=== PATIENT | female | born 1985 | race Two or more races ===

== ENCOUNTER 2021-12-19 13:27 | Inpatient (IN) | payer OTHER ==
[~2021-12-19] VITALS: Ht 165.1 cm; Wt 59.9 kg
[2021-12-19] MEDS ORDERED: ONDANSETRON HCL 4MG/2ML INJ IV STA (13:54)
[2021-12-19] MEDS ORDERED: MORPHINE SULFATE 4 MG/ML CPJ (NOT FOR IM USE) IV STA (13:54)
[2021-12-19] MEDS ORDERED: FAMOTIDINE 20MG/2ML VIAL IV STA (13:54)
[2021-12-19] MEDS ORDERED: SODIUM CHLORIDE 0.9% 1,000 ML IV ONE (14:00)
[2021-12-19] MEDS ORDERED: HALOPERIDOL LACTATE 5MG/ML VIAL IM ONE (14:30)
[2021-12-19 15:03] LABS: BASOPHILS % 0.5 % (0.0-2.0); EOSINOPHILS % 0.5 % (0.0-5.0); HEMATOCRIT. 36.1 % (36.0-48.0); HEMOGLOBIN. 12.1 g/dL (12.0-16.0); LYMPHOCYTES % 21.3 % (20.0-50.0); MEAN CORPUSCULAR HEMOGLOBIN 28.2 pg (28.0-32.0); MEAN CORPUSCULAR VOLUME 84.1 fL (81.0-99.0); MEAN PLATELET VOLUME 9.9 fl (7.4-10.4); MONOCYTES % 7.8 % (2.0-8.0); NEUTROPHILS % 69.9 % (40.0-76.0); PLATELET 297 x1000/uL (130-400)
[2021-12-19 15:11] LABS: CHLORIDE 110 mEq/L (98-107)
[2021-12-19 15:22] LABS: ETHANOL BLOOD < 10 mg/dL; HCG SCREEN NEGATIVE
[2021-12-19] MEDS ORDERED: POTASSIUM CHLORIDE 20MEQ TABLET SR PO ONE ×2 (15:30→20:00)
[2021-12-19] MEDS: POTASSIUM CHLORIDE 20MEQ TABLET SR PO NR ×2 (20:09→21:29)
[2021-12-19] MEDS ORDERED: ACETAMINOPHEN 325MG TABLET PO PRN (21:00)
[2021-12-19] MEDS ORDERED: NALOXONE HCL 0.4MG/ML VIAL IV PRN (21:15)
[2021-12-19] MEDS: HYDROCODONE/ACETAMINOPHEN 5/325MG TABLET PO PRN (21:18)
[2021-12-19] MEDS ORDERED: PANTOPRAZOLE SODIUM 40 MG/VIAL IV SCH (22:00)
[2021-12-19 22:13] VITALS: BP 112/76
[2021-12-20] VITALS: BP 110/64
[2021-12-20] MEDS: HYDROCODONE/ACETAMINOPHEN 5/325MG TABLET PO PRN ×2 (03:04→09:54)
[2021-12-20] MEDS: ONDANSETRON HCL 4MG/2ML INJ IV PRN ×2 (03:04→09:54)
[2021-12-20 04:00] VITALS: BP 108/64
[2021-12-20] MEDS: METOCLOPRAMIDE HCL 10MG TABLET PO SCH ×2 (06:49→11:52)
[2021-12-20] MEDS ORDERED: ACETAMINOPHEN PO (07:01)
[2021-12-20] MEDS ORDERED: ONDA8TAB13 PO (07:01)
[2021-12-20] MEDS ORDERED: Domperidone PO (07:01)
[2021-12-20] MEDS ORDERED: ESOM40CA53 PO (07:01)
[2021-12-20] MEDS ORDERED: MORP30TA66 PO (07:01)
[2021-12-20 07:11] LABS: BASOPHILS % 0.2 % (0.0-2.0); EOSINOPHILS % 0.1 % (0.0-5.0); HEMATOCRIT. 35.5 % (36.0-48.0); MEAN CORPUSCULAR HEMOGLOBIN 27.9 pg (28.0-32.0); MEAN CORPUSCULAR VOLUME 83.1 fL (81.0-99.0); MEAN PLATELET VOLUME 10.1 fl (7.4-10.4); MONOCYTES % 7.8 % (2.0-8.0); NEUTROPHILS % 75.9 % (40.0-76.0); PLATELET 297 x1000/uL (130-400); RED BLOOD CELL COUNT 4.28 mill/uL (4.2-5.4); RED CELL DISTRIBUTION WIDTH 13.9 % (11.6-14.6)
[2021-12-20 08:25] LABS: CHLORIDE 104 mEq/L (98-107)
[2021-12-20] MEDS ORDERED: POTASSIUM CHLORIDE 20MEQ TABLET SR PO NR (10:00)
[2021-12-20] MEDS ORDERED: ONDA4TAB50 MT (12:17)
[2021-12-20 12:19] VITALS: BP 117/71
== END 2021-12-20 13:20 | disposition home or self-care (01) | DRG 392 ==
LOC: ER 13:52 → 6EST 15:22 → UNDOADMIN 15:22 → EDBEDREQSVC 16:09 → EDBEDREQ 16:09 → ENRESERV 16:46 → 6EST 17:46
PROVIDERS: ADMIT Internal Medicine; ATTEND Internal Medicine
DX: K29.70 Gastritis, unspecified, without bleeding (principal); K31.84 Gastroparesis; K21.9 Gastro-esophageal reflux disease without esophagitis; K52.9 Noninfective gastroenteritis and colitis, unspecified; F32.A Depression, unspecified; F17.210 Nicotine dependence, cigarettes, uncomplicated; Z88.8 Allergy status to other drugs, medicaments and biological substances; Z79.899 Other long term (current) drug therapy
CPT/HCPCS: 36415; 71045; 80048; 80053; 80320; 84484; 84703; 85025; 93005; 99285; C9113; J1630; J2270; J2405; J3490; J7030; J8597; G0480